=== PATIENT | male | born 1950 | race Caucasian/White ===

== ENCOUNTER 2018-09-15 05:09 | Day surgery (SDC) ==
[2018-09-07 09:13] LABS: URINE SOURCE CLEAN CATCH
[2018-09-07 09:32] LABS: HEMATOCRIT 46.9 % (42.0-52.0); HEMOGLOBIN 15.2 g/dL (14.0-18.0); MCH 29.9 PG (27-31); MCHC 32.4 g/dL (33-37); MCV 92.1 FL (81-99); MPV 9.5 FL (7.4-10.4); RBC 5.09 XMIL (4.7-6.1); RDW 14.3 % (11.5-14.5); WBC 11.29 X1000 (4.8-10.8)
[2018-09-07 09:37] LABS: INR 0.89; PROTIME 12.7 Seconds (11.0-16.0)
[2018-09-07 09:56] LABS: BILIRUBIN URINE NEGATIVE (NEGATIVE); BLOOD URINE SMALL (NEGATIVE); COLOR YELLOW; GLUCOSE URINE NEGATIVE (NEGATIVE); KETONE URINE NEGATIVE (NEGATIVE); LEUKOCYTES URINE LARGE (NEGATIVE); NITRITE URINE NEGATIVE (NEGATIVE); PH URINE 6.5; PROTEIN URINE TRACE mg/dL (NEGATIVE); SP GRAVITY URINE 1.018; TURBIDITY URINE HAZY (CLEAR); UROBILINOGEN URINE NORMAL (NORMAL)
[2018-09-07 10:01] LABS: UR EPITHELIAL CELLS <10 /HPF (<10); URINE BACTERIA 2+ /HPF; URINE RBC <10 /HPF (<10); URINE WBC TNTC /HPF (<10)
--- NOTE | 2018-09-07 10:05 | EKG Report ---
Test Performed on : 09/07/2018 09:01:36 AM Test Reason : PAT Blood Pressure : / mmHG Vent. Rate : 071 BPM Atrial Rate : 071 BPM P-R Int : 138 ms QRS Dur : 098 ms QT Int : 400 ms P-R-T Axes : 076 028 072 degrees QTc Int : 434 ms Normal sinus rhythm. with sinus arrhythmia. Normal ECG No previous ECGs available Confirmed by Gildardo FRANCES, Ajay Bone ([id number]) on 09/07/2018 10:24:18 AM
[2018-09-07 11:13] LABS: AGAP 18; BUN 19 mg/dL (8-22); CALCIUM 9.9 mg/dL (8.8-10.2); CHLORIDE 103 mmol/L (98-107); COSMO 285; CREATININE 1.1 mg/dL (0.7-1.2); ESTIMATED GFR > 60; GLUCOSE 99 mg/dL (70-104); POTASSIUM 4.2 mmol/L (3.5-5.1); SODIUM 142 mmol/L (136-145); TCO2 21 mmol/L (25-35)
--- NOTE | 2018-09-14 18:54 | HISTORY AND PHYSICAL ---
HISTORY OF PRESENT ILLNESS: A 68-year-old male with long-standing history of BPH, hesitancy, weak stream, nocturia, bilateral renal cysts. He has been on Rapaflo followed by switching to Flomax 0.4 mg b.i.d. He has had 2 transurethral resections of prostate in the past. Last one being several years ago. He has had PSA of 0.59 on 08/12/2018. He underwent cystoscopy on 08/23/2018, which revealed significant bilobar prostatic hypertrophy with obstruction. On cystoscopic examination, he did not appear to have TUR defect at all and hence, I educated the patient that he likely has significant prostatic hypertrophy regrowth. Of note, he has had elevated postvoid residuals with the last one documented of 332 mL 08/12/2018. He was educated on observation versus intermittent self-catheterization versus addition of finasteride, versus bipolar transurethral resection of the prostate and wants to proceed with the former. PAST MEDICAL HISTORY: Rheumatoid arthritis, renal cysts, BPH. GERD, allergic rhinitis. Hyperlipidemia. PAST SURGICAL HISTORY: Neck surgery. TURP x2. HOME MEDICATIONS: Amitriptyline, calcium, Flomax, Fosamax, methotrexate, omeprazole, prednisone, Zantac and Zocor. ALLERGIES: Nonsteroidal anti-inflammatories. FAMILY HISTORY: Positive for coronary artery disease. SOCIAL HISTORY: Former smoker, occasional alcohol, denies illicit drug use. PHYSICAL EXAMINATION: GENERAL: No acute distress. HEENT: Normocephalic, atraumatic. CARDIOVASCULAR: Regular rate and rhythm. PULMONARY: Bilateral breath sounds. ABDOMEN: Protuberant, nontender to palpation. : Normal external male genitalia. PERTINENT IMAGES: None. ASSESSMENT AND PLAN: A 68-year-old male with significant benign prostatic hypertrophy, who has had transurethral resection of the prostate in the remote past. He has been on Flomax b.i.d. and continues to have weak stream, hesitancy, nocturia and significantly elevated postvoid residual. He desires transurethral resection of the prostate. We discussed in detail, the risks of the procedure including, but not limited to, bleeding, infection, injury to the bladder, injury to adjacent structures, small risk of long-term urinary incontinence, small risk of long-term erectile dysfunction, long-term complications such as bladder neck contracture, need for additional interventions, need for repeat surgery in the future due to prostatic regrowth. We specifically discussed that retrograde ejaculation is a likely permanent side effect. He voiced understanding and wants to proceed. PLAN: Bipolar transurethral resection of the prostate. cc: Zander Engle MD
[2018-09-15] MEDS ORDERED: LR 1,000 ML ONE (05:34)
[2018-09-15] MEDS ORDERED: REGLAN ONE (05:34)
[2018-09-15] MEDS ORDERED: PEPCID ONE (05:34)
[2018-09-15] MEDS ORDERED: KEFZOL 1 GM/D5W 2 GM/100 ML IVPB ONE (05:34)
[2018-09-15] MEDS ORDERED: FENTANYL ONE (06:34)
[2018-09-15] MEDS ORDERED: DIPRIVAN 1% ONE (06:35)
[2018-09-15] MEDS ORDERED: DECADRON ONE (07:11)
[2018-09-15] MEDS ORDERED: XYLOCAINE 2% VISCOUS ONE (07:13)
[2018-09-15] MEDS ORDERED: ZOFRAN ONE (07:17)
[2018-09-15] MEDS: DILAUDID ONE ×4 (08:10→08:36)
[2018-09-15] MEDS ORDERED: NS 1,000 ML ONE (08:15)
[2018-09-15] MEDS ORDERED: MORPHINE IV PRN (09:20)
[2018-09-15] MEDS ORDERED: BENADRYL IV PRN (09:30)
[2018-09-15] MEDS ORDERED: NORCO-5 PO PRN (09:30)
[2018-09-15] MEDS ORDERED: DITROPAN PO PRN (09:30)
[2018-09-15] MEDS ORDERED: NORCO-7.5 PO PRN (09:30)
[2018-09-15] MEDS ORDERED: LABETALOL IV PRN (09:30)
[2018-09-15] MEDS ORDERED: PHENERGAN PR PRN (09:30)
[2018-09-15] MEDS ORDERED: PHENERGAN IV PRN (09:30)
[2018-09-15] MEDS ORDERED: BENADRYL LIQUID PO PRN (09:30)
[2018-09-15] MEDS ORDERED: NORCO-10 PO PRN (09:30)
[2018-09-15] MEDS ORDERED: ZOFRAN IV PRN (09:30)
[2018-09-15] MEDS ORDERED: PHENERGAN PO PRN (09:30)
[2018-09-15] MEDS ORDERED: SODIUM CHLORIDE 0.9% INJ PRN (09:30)
[2018-09-15] MEDS ORDERED: ULTRAM PO PRN (13:55)
[2018-09-15] MEDS: KEFZOL 2 GM/D5W 2 GM/50 ML IVPB IV SCH (15:05)
[2018-09-15] MEDS: COLACE PO SCH (20:23)
[2018-09-15] MEDS ORDERED: DESYREL PO SCH (21:00)
[2018-09-16] MEDS: KEFZOL 2 GM/D5W 2 GM/50 ML IVPB IV SCH ×2 (00:33→06:12)
[2018-09-16] MEDS ORDERED: PRILOSEC PO SCH (07:00)
[2018-09-16 07:12] LABS: HEMOGLOBIN 14.2 g/dL (14.0-18.0); MCH 30.7 PG (27-31); MCV 93.1 FL (81-99); MPV 9.7 FL (7.4-10.4); RBC 4.62 XMIL (4.7-6.1); RDW 14.3 % (11.5-14.5); WBC 17.99 X1000 (4.8-10.8)
[2018-09-16 07:39] VITALS: BP 92/58
[2018-09-16 07:41] LABS: CALCIUM 9.3 mg/dL (8.8-10.2); CREATININE 1.5 mg/dL (0.7-1.2); POTASSIUM 4.5 mmol/L (3.5-5.1)
[2018-09-16] MEDS ORDERED: PREDNISONE PO SCH (09:00)
[2018-09-16] MEDS ORDERED: LIPITOR PO SCH (09:00)
[2018-09-16] MEDS ORDERED: MAGNESIUM GLUCONATE PO SCH (09:00)
[2018-09-16] MEDS ORDERED: TUMS PO SCH (09:00)
[2018-09-16] MEDS: COLACE PO SCH (09:18)
[2018-09-20] MEDS ORDERED: PATIENT'S OWN MED INJ SCH (06:00)
[2018-09-20] MEDS ORDERED: METHOTREXATE SODIUM IJ SCH (06:00)
--- NOTE | 2018-10-04 13:52 | OPERATIVE NOTE ---
PROCEDURE DATE: 09/15/2018 SURGEON: Dr. Zander Engle. PREOPERATIVE DIAGNOSIS: 1. Benign prostatic hypertrophy. 2. Weak stream. PROCEDURE: Bipolar transurethral resection of the prostate with the button. INDICATIONS: A 68-year-old male with longstanding history of BPH who has had transurethral resection of prostate in the past several years ago. He developed obstructive symptoms and has been on Rapaflo followed by Flomax b.i.d. He did not have relief in symptoms and continues to have a weak stream. He underwent cystoscopy which revealed significant prostatic hypertrophy with obstruction. He also has elevated postvoid residuals. He desires definitive intervention. FINDINGS: Adequate hemostasis at conclusion of case, significant bilobar hypertrophy. DESCRIPTION OF PROCEDURE: After obtaining informed consent, patient brought to the operating room. Perioperative antibiotics and laryngeal mask anesthesia were administered. He was placed in lithotomy position, prepped and draped in sterile fashion. A 21-Comoran rigid cystoscope was used to gain access to the bladder, which was then examined systematic fashion. His prostatic urethra had bilobar hypertrophy as stated above. His bladder showed no evidence of mucosal lesions. He had moderate trabeculations. No sizable diverticula. No stones noted. I then removed the cystoscope and introduced 25-Comoran rigid resectoscope. Bipolar Gyrus button was used to resect the prostatic adenoma starting at the bladder neck to the level of the verumontanum distally to the depth of the prostatic capsule. This was followed by resection adenoma in a clockwise and counterclockwise fashion. Once that was done, the field was inspected for hemostasis and it was excellent. The resectoscope was then removed and 20-Comoran, 3-way Ricks catheter was introduced. The patient was extubated after the catheter was placed on light traction connected to continuous bladder irrigation. He was taken to PACU for further recovery. ESTIMATED BLOOD LOSS: 30 mL. COMPLICATIONS: None. SPECIMEN REMOVED: None. DRAIN: 20-Comoran 3-way Ricks catheter. DISPOSITION: To PACU for observation with Ricks catheter connected to gravity drainage. cc: Zander Engle MD
== END 2018-09-16 11:27 | disposition home or self-care (01) ==
LOC: 4N 05:09 → OR 05:09
PROVIDERS: ATTEND Urology
PROC: UR.TURP (2018-09-15 07:05)
CPT/HCPCS: 80048; 81001; 85027; 85610; 85730; 93005; 93010; 94799; A9270; J0690; J1100; J1170; J2405; J3010; J7030; J7120; J7506; J7512